=== PATIENT | female | born 1945 | race Caucasian/White ===

== ENCOUNTER 2018-09-04 11:53 | Emergency (ER) | payer MEDICARE, OTHER ==
[2018-09-04 13:24] VITALS: BP 165/68; PULSE 64; O2SAT 96
--- NOTE | 2018-09-04 13:43 | ERPHSYRPT ---
- History of Present Illness Time Seen by Provider: 09/04/18 13:10 Patient Subjective Stated Complaint: STATES STARTED HAVING PAIN IN RIGHT UPPER LEG TODAY. PAIN IS INTERMITTENT AND SHARP. Triage Nursing Assessment: TO ROOM PER WC. SKIN W/D, COLOR NORMAL, RESP EASY. TENDERNESS NOTED TO RIGHT UPPER LEG. PEDAL PULSE STRONG IN RIGHT FOOT. LEG AND FOOT NORMAL COLOR. Physician History: 72 y/o morbidly obese white female with bilat chronic venous stasis dz presents with intermittent right hip and upper lateral thigh shooting pain. no acute injury. recently had negative venous doppler u/s. Method of Injury: other (no injury) Occurred: this morning Quality: intermittent, other (spasms) Severity of Pain-Max: mild Severity of Pain-Current: mild Lower Extremities Pain: hip: right, thigh: right (upper lateral) Modifying Factors: Improves With: movement Allergies/Adverse Reactions: No Known Drug Allergies Allergy (Verified 09/04/18 13:11) Home Medications: Amlodipine Besylate 5 mg [Norvasc 5 mg] 5 mg PO DAILY 11/11/12 [History] Aspirin EC 81 mg [Ecotrin 81 mg] 81 mg PO DAILY 11/11/12 [History] Metoprolol Succinate 100 mg [Toprol Xl 100 MG] 100 mg PO DAILY 11/11/12 [ History] Simvastatin 40 mg [Zocor 40 mg] 40 mg PO DAILY 11/11/12 [History] Valsartan/Hydrochlorothiazide [Diovan Hct 160-12.5 mg Tab] 1 each PO DAILY 11/11 [History] Bimatoprost [Lumigan] 1 drop OP BID 09/04/18 [History] Dorzolamide HCl/Timolol Maleat [Dorzolamide-Timolol Eye Drops] 1 drop OP BID [History] Dorzolamide/Timolol/Pf [Cosopt Pf Eye Drops] 1 drop OP BID 09/04/18 [History] Hx Tetanus, Diphtheria Vaccination/Date Given: No Hx Influenza Vaccination/Date Given: No Hx Pneumococcal Vaccination/Date Given: No - Review of Systems Constitutional: No Symptoms Eyes: No Symptoms Ears, Nose, & Throat: No Symptoms Respiratory: No Symptoms Cardiac: No Symptoms Abdominal/Gastrointestinal: No Symptoms Genitourinary Symptoms: No Symptoms Musculoskeletal: Other (right upper lateral hip and thigh intermittent spasm, shooting pain) Skin: No Symptoms Neurological: No Symptoms Psychological: No Symptoms Endocrine: No Symptoms Hematologic/Lymphatic: No Symptoms Immunological/Allergic: No Symptoms All Other Systems: Reviewed and Negative - Past Medical History Pertinent Past Medical History: Yes Neurological History: No Pertinent History ENT History: No Pertinent History Cardiac History: High Cholesterol, Hypertension Respiratory History: No Pertinent History Endocrine Medical History: No Pertinent History Musculoskeletal History: No Pertinent History GI Medical History: No Pertinent History History: No Pertinent History Psycho-Social History: No Pertinent History Female Reproductive Disorders: No Pertinent History - Past Surgical History Past Surgical History: Yes Neuro Surgical History: No Pertinent History Cardiac: Cardiac Catheterization Respiratory: No Pertinent History Female Surgical History: Section, Hysterectomy - Social History Smoking Status: Former smoker Exposure to second hand smoke: No Drug Use: none Patient Lives Alone: No - Nursing Vital Signs Nursing Vital Signs: Initial Vital Signs Temperature 97.6 F 09/04/18 13:00 Pulse Rate 64 09/04/18 13:00 Respiratory Rate 18 09/04/18 13:00 Blood Pressure 165/68 09/04/18 13:00 O2 Sat by Pulse Oximetry 96 09/04/18 13:00 Pain Scale Pain Intensity 0 - Physical Exam General Appearance: no apparent distress, alert, anxiety Eyes, Ears, Nose, Throat Exam: normal ENT inspection Neck Exam: normal inspection, non-tender, supple, full range of motion Cardiovascular/Respiratory Exam: chest non-tender, normal breath sounds, regular rate/rhythm, heart sounds normal, no respiratory distress Gastrointestinal/Abdominal Exam: non-tender, soft, no organomegaly, No guarding , No tenderness Back Exam: normal inspection, normal range of motion, CVA tenderness Hips Exam: right: normal inspection, normal range of motion, no evidence of injury, bone tenderness, soft tissue tenderness Legs Exam: bilateral leg: non-tender, normal inspection, normal range of motion , no evidence of injury Knees Exam: bilateral knee: non-tender, normal inspection, normal range of motion, no evidence of injury Ankle Exam: bilateral ankle: non-tender, normal inspection, normal range of motion, no evidence of injury Foot Exam: bilateral foot: non-tender, normal inspection, normal range of motion , no evidence of injury Neuro/Tendon Exam: normal sensation, normal motor functions, normal tendon functions Mental Status Exam: alert, oriented x 3, cooperative Skin Exam: normal color, warm, dry SpO2 Interpretation: normal SpO2: 96 Oxygen Delivery: Room Air - Course Nursing assessment & vital signs reviewed: Yes Ordered Tests: Active Orders 24 hr Category Date Time Status FEMUR Stat Exams 09/04/18 13:17 Completed HIP UNI (2V) INCL PEL IF DONE Stat Exams 09/04/18 13:17 Completed - Progress Progress: unchanged, re-examined Progress Note: 09/04/18 14:25 xray right hip, pelvis and femur- no acute fx or dislocation. degenerative changes noted Counseled pt/family regarding: diagnosis, need for follow-up, rad results - Departure Time of Disposition: 14:24 Departure Disposition: Home Clinical Impression: Hip pain, Muscle spasm Condition: Stable Critical Care Time: No Referrals: ULISES SERRATO MD [Primary Care Provider] - Additional Instructions: follow up with primary doctor for further management Prescriptions: Cyclobenzaprine HCl 10 mg [Flexeril 10 MG] 10 mg PO TID #12 tablet Prednisone 10 mg [Deltasone 10 mg] 10 mg PO TID #12 tablet
--- NOTE | 2018-09-04 13:48 | XRAY ---
Indication: Mid femur pain. No known injury. Comparison: None 2 views of the right femur demonstrates moderate tricompartmental knee degenerative changes and heavy scattered vascular calcifications. No other bony, articular, or soft tissue abnormalities.
--- NOTE | 2018-09-04 13:50 | XRAY ---
Indication: Mid femur pain. No known injury. Comparison: None 2 views of the right hip demonstrates mild lower lumbar degenerative spondylosis and heavy scattered vascular calcifications. No other bony, articular, or soft tissue abnormalities.
== END 2018-09-04 15:12 | disposition home or self-care (01) ==
LOC: ED 11:53
DX: M25.551 Pain in right hip (principal); M79.651 Pain in right thigh; M62.838 Other muscle spasm; I10 Essential (primary) hypertension; Z79.899 Other long term (current) drug therapy; I87.8 Other specified disorders of veins
CPT/HCPCS: 73502; 73552; 99283